=== PATIENT | female | born 1970 | race Two or more races ===

== ENCOUNTER 2020-11-27 09:27 | Outpatient (RCR) | payer BC, SELFPAY ==
[2020-11-27] MEDS: COVID-19 VACC, MRNA(PFIZER)/PF 30 MCG/0.3 ML SYRINGE IM (07:09)
[2020-12-18] MEDS: COVID-19 VACC, MRNA(PFIZER)/PF 30 MCG/0.3 ML SYRINGE IM (07:02)
== END 2020-11-27 23:59 ==
LOC: IMMUN 09:27
PROVIDERS: PCP Family Medicine; Visit Provider Family Medicine
DX: Z23 Encounter for immunization (principal)
CPT/HCPCS: 0001A; 0002A; 91300